=== PATIENT | male | born 1955 | race African-American/Black ===

== ENCOUNTER 2018-09-27 12:19 | Day surgery (SDC) | payer OTHER ==
[~2018-09-27] VITALS: Ht 188 cm; Wt 111.2 kg
[2018-09-27] VITALS (11 sets, daily range): BP systolic 125–171; BP diastolic 66–93; PULSE 57–77; TEMP 98–98.4
[2018-09-27] MEDS ORDERED: NORVASC 10MG10 MG PO (13:38)
[2018-09-27] MEDS ORDERED: LOPRESSOR 550 MG/TAB PO (13:39)
[2018-09-27] MEDS ORDERED: GLUCOPHAGE1000 MG PO (13:40)
[2018-09-27] MEDS ORDERED: HYZAAR 50-12.1 UDTAB PO (13:40)
[2018-09-27] MEDS ORDERED: JARDIANCE10 PO (13:40)
--- NOTE | 2018-09-27 17:09 | NUR ---
PT TO ROOM 343 PER BED WITH REPORT FROM [facility] PACU @ 2951. OWEN TO DD WITH CLEAR FLUID IN BAG WITH CBI RUNNING. IV TO LEFT HAND. PT IS A/O X3. STAT LOCK INPLACE FOR 3 WAY OWEN. AT BEDSIDE.
--- NOTE | 2018-09-27 18:30 | NUR ---
REPORT TO TERRI AGEE.
--- NOTE | 2018-09-27 20:30 | NUR ---
Patient in bed, has CBI infusing with return of yellow urine in pedersen bag. Patient denies pain, reports not liking the "feel" of the catheter. Pedersen catheter care provided. Denies pain or nausea. Has eaten without problem and taking oral fluids well. IV capped to left hand. Wearing SCD's to lower extremities.
--- NOTE | 2018-09-28 00:30 | NUR ---
Patient remains awake, no pain. Urine with CBI running remains yellow and no clots noted.
[2018-09-28 04:41] VITALS: BP 146/76; PULSE 51; TEMP 98.1
--- NOTE | 2018-09-28 06:00 | NUR ---
CBI clamped at this time. Patient on his phone, no concerns voiced.
--- NOTE | 2018-09-28 08:00 | NUR ---
Patient alert and oriented, answers questions appropriately. Calvin catheter patent. CBI clamped. Urine dark jackie, no clots noted. No c/o pain or discomfort.
--- NOTE | 2018-09-28 08:12 | NUR ---
Pt is sitting in bed with breakfast and family in room. Pt reports no pain at this time. IV site is clean, dry, and intact with no signs of redness or inflammation. Urine obtained via urinary catheter. Urine is garcia red. Assessment as charted.
[2018-09-28 09:00] VITALS: BP 150/64; PULSE 75; TEMP 98.1
--- NOTE | 2018-09-28 09:45 | NUR ---
Dr Contreras here to see patient, orders received to discontinue CBI/pedersen catheter. Pedersen catheter discontinued after bladder filled with 200ml normal saline, balloon intact, tolerated procedure well. Ambulation encouraged. Will await urination. No other c/o at this time.
--- NOTE | 2018-09-28 11:33 | NUR ---
SW student met with the patient to discuss discharge plan. The patient lives in [place] with his , Lola. The patient does not use any DME and reports indpendence with ADLs. The patient's PCP is Dr. Ginny Ashton and he receives his medications from [email or web address] or [facility] in [place]. The patient reports no difficulties obtaining his medications. The patient states that he does not have a DPOA-HC completed and was not interested in completing one at this time. The patient plans to return home with his upon discharge. No additional needs at this time.
[2018-09-28 12:12] VITALS: BP 137/74; PULSE 63; TEMP 97.8
--- NOTE | 2018-09-28 12:19 | NUR ---
First visit from the supervisor weaving. Bar Gauger And Lubricator Tender prayed with patient and . No other needs right now.
--- NOTE | 2018-09-28 13:30 | NUR ---
Discharge instructions given both verbal and handwritten. Discussed f/u appointment, s/s of infection, activity and home care. Denies questions or concerns. IV DCD at this time. No s/s of infection, cath intact.
--- NOTE | 2018-09-28 13:35 | NUR ---
Pt has been eager to leave all afternoon. Has been up ambulating in room independently. Three cups of urine present in room at this time, urine has become less red with every void. Pt is being prepared for discharge.
== END 2018-09-28 14:43 | disposition home or self-care (01) ==
LOC: SDCO 12:19 → SURG 16:40 → SDCO 09-28 14:43
DX: N40.1 Benign prostatic hyperplasia with lower urinary tract symptoms (principal); R35.0 Frequency of micturition; R35.1 Nocturia; R39.15 Urgency of urination; E11.9 Type 2 diabetes mellitus without complications; Z79.84 Long term (current) use of oral hypoglycemic drugs; F17.210 Nicotine dependence, cigarettes, uncomplicated
CPT/HCPCS: OP; J0360; J0690; J1100; J2405; J2704; J3010; J7030